=== PATIENT | male | born 2000 | race Caucasian/White ===

== ENCOUNTER 2019-10-04 07:52 | Emergency (ER) | payer OTHER ==
[2019-10-04 07:58] VITALS: BP 110/72; PULSE 90; TEMP 98.2; BMI 27.8
[2019-10-04] MEDS ORDERED: ONDANSETRON 4 MG TABLET PO ONE (08:36)
--- NOTE | 2019-10-04 08:40 | PDOC ---
History of Present Illness - General Chief Complaint: Nausea/Vomiting Stated Complaint: VOMITING Time Seen by Provider: 10/04/19 08:32 History Source: Patient - History of Present Illness Timing/Duration: reports: other (last night) Past History - Past Medical History Allergies/Adverse Reactions: Allergies Allergy/AdvReac Type Severity Reaction Status Date / Time No Known Allergies Allergy Verified 10/04/19 07:58 Home Medications: Ambulatory Orders Ondansetron HCl [Zofran] 4 mg PO Q8H #12 tablet 10/04/19 COPD: No - Psycho Social/Smoking Cessation Hx Smoking History: Never smoked Hx Alcohol Use: No Drug/Substance Use Hx: No Review of Systems - Review of Systems Constitutional: No: Chills, Fever ABD/GI: Yes: Nausea, Vomiting. No: Diarrhea, Abdominal cramping *Physical Exam - Vital Signs Last Vital Signs Temp Pulse Resp BP Pulse Ox 98.2 F 90 16 110/72 97 10/04/19 07:54 10/04/19 07:54 10/04/19 07:54 10/04/19 07:54 10/04/19 07:54 - Physical Exam General Appearance: Yes: Appropriately Dressed. No: Apparent Distress HEENT: positive: Normal Voice Neck: positive: Supple Respiratory/Chest: negative: Respiratory Distress Gastrointestinal/Abdominal: positive: Soft. negative: Tender Integumentary: positive: Dry, Warm Neurologic: positive: Fully Oriented, Alert, Normal Mood/Affect Medical Decision Making - Medical Decision Making 10/04/19 08:37 18-year-old male, no significant history, admits to almost daily marijuana use, here with nausea and vomiting that started last night and has since improved. Patient states he did eat at a new restaurant several hours prior. Denies abdominal pain, diarrhea or fever. No h/o similar episode see exam Isolated n/v Since improved No abd pain or fever Admits to almost daily marijuana use Stable and well uli w/ benign abd Dose of zofran here and reassess 10/04/19 09:24 Patient able to tolerate p.o. after dose of zofran here and feels well enough to be discharged. Will dc with small dose of Zofran to take as needed with supportive treatment. Reasons to come back to ED discussed with patient and father Discharge - Discharge Information Problems reviewed: Yes Clinical Impression/Diagnosis: Nausea and vomiting Qualifiers: Vomiting type: unspecified Vomiting Intractability: non-intractable Qualified Code(s): R11.2 - Nausea with vomiting, unspecified Condition: Improved Disposition: HOME - Additional Discharge Information Prescriptions: Ondansetron HCl [Zofran] 4 mg PO Q8H #12 tablet - Follow up/Referral - Patient Discharge Instructions Patient Printed Discharge Instructions: DI for Vomiting -- Adult Additional Instructions: Cause of her nausea vomiting is unclear at this time but if it is related to the food that you ate prior to symptoms should improve. Take Zofran as needed for nausea If symptoms continue, persist, gets worse and/or you develop severe abdominal pain or fever, return to ER immediately - Post Discharge Activity
[2019-10-04] MEDS ORDERED: ONDANSETRON *ODT* 4 MG TABLET ONE (08:45)
== END 2019-10-04 08:51 | disposition home or self-care (01) ==
LOC: JER 07:52 → JERFT 07:52
DX: R11.2 Nausea with vomiting, unspecified (principal); F12.90 Cannabis use, unspecified, uncomplicated
CPT/HCPCS: 99281-25

== ENCOUNTER 2020-11-11 08:51 | Emergency (ER) | payer OTHER ==
[2020-11-11 09:29] VITALS: BMI 29.2
[2020-11-11] MEDS ORDERED: ACETAMINOPHEN 500 MG TABLET (FP) PO ONE (09:59)
[2020-11-11] MEDS ORDERED: ACETAMINOPHEN 500 MG TABLET (FP) ONE (10:05)
[2020-11-11 10:57] VITALS: BP 111/78; PULSE 105; TEMP 98.8
== END 2020-11-11 10:59 | disposition home or self-care (01) ==
LOC: JER 08:51
DX: R51.9 Headache, unspecified (principal); R50.9 Fever, unspecified; Z11.52 Encounter for screening for COVID-19
CPT/HCPCS: 99283-25; C9803; U0003